=== PATIENT | male | born 1975 | race Caucasian/White ===

== ENCOUNTER 2016-06-22 07:45 | Emergency (ER) | payer OTHER ==
[~2016-06-22] VITALS: Ht 188 cm; Wt 127.0 kg
--- NOTE | ~2016-06-22 | EKG ---
[address] [place] [address] ELECTROCARDIOGRAM REPORT Name: FRANCIS VARGAS [id number] Admission: 06/22/16 Attend Phys: Discharge: 06/22/16 Date of : 73 Report #: [id number] THIS REPORT FOR: //name// [facility] ED Test Date: 2016-06-22 Test Time: 09:10:22 Pat Name: FRANCIS VARGAS Department: Room: 9 Gender: M Photograph Mounter: Luisa ROLLINS : 1975 Requested By: Order Number: [id number] MD: Anam Mckeon Measurements Intervals [place] Rate: 65 P: 55 OK: 154 QRS: 19 QRSD: 100 T: 7 QT: 377 QTc: 392 Interpretive Statements Sinus rhythm Low voltage, precordial leads No previous ECG available for comparison Electronically Signed On 06-22-2016 13:55:30 PROJECTION CAMER[employer] OPERATOR by Anam Mckeon [email or web address] <ELECTRONICALLY SIGNED> By: Anam Mckeon MD, [facility] 06/22/16 1355 0910 0910 Anam Mckeon MD, FAC /EPI
[2016-06-22 08:37] LABS: ABSOLUTE NEUTROPHILS 4.7 thou/uL (1.4-8.2); BASOPHILS 0.2 % (0.0-2.0); EOSINOPHILS 1.6 % (0.0-3.0); HEMATOCRIT 44.2 % (42.0-52.0); HEMOGLOBIN 15.2 gm/dL (14.0-18.0); LYMPHOCYTES 13.7 % (24.0-44.0); MCH 31.2 pg (26.0-34.0); MCHC 34.4 % (28.0-37.0); MCV 90.5 fL (80.0-100.0); MONOCYTES 5.7 % (1.0-8.0); PLATELET COUNT 153 thou/uL (150-400); POLYS 78.8 % (36.0-66.0); RBC 4.88 mil/uL (4.50-6.00); RDW 13.6 % (10.5-14.5)
[2016-06-22 08:38] LABS: MANUAL DIFF NO
[2016-06-22 08:41] LABS: ANION GAP 9 mmol/L (7-16); BUN 18 mg/dL (7-18); CALCIUM 8.4 mg/dL (8.5-10.1); CHLORIDE 107 mmol/L (98-107); CO2 27 mmol/L (21-32); CREATININE 0.9 mg/dL (0.6-1.3); GLUCOSE 112 mg/dL (70-99); POTASSIUM 4.1 mmol/L (3.5-5.1); SODIUM 143 mmol/L (136-145)
[2016-06-22 08:49] LABS: ALBUMIN 3.7 g/dL (3.4-5.0); ALKALINE PHOSPHATASE 67 U/L (46-116); SGOT 33 U/L (15-37); SGPT 38 U/L (30-65); TOTAL BILIRUBIN 0.6 mg/dL (<0.1-1.0); TOTAL PROTEIN 7.1 g/dL (6.4-8.2); TROPONIN-I < 0.04 ng/mL (<0.04-0.07)
[2016-06-22] MEDS ORDERED: PEPCID20 MG PO (10:06)
[2016-06-22] MEDS ORDERED: BENADRYL25 MG PO (10:06)
[2016-06-22] MEDS ORDERED: PREDNISONE 20 M20 MG PO (10:20)
[2016-06-22 11:08] VITALS: BP 130/68
== END 2016-06-22 11:09 | disposition home or self-care (01) ==
LOC: ER 07:45
PROVIDERS: Emergency Medicine
DX: R55 Syncope and collapse (principal); E86.0 Dehydration; T78.40XA Allergy, unspecified, initial encounter; X58.XXXA Exposure to other specified factors, initial encounter; Z98.890 Other specified postprocedural states; Z88.0 Allergy status to penicillin